=== PATIENT | female | born 1995 | race Caucasian/White ===

== ENCOUNTER 2020-02-14 19:47 | Emergency (ER) | payer OTHER ==
[2020-02-14 20:49] LABS: MONOSPOT (MONONUCLEOSIS) NEGATIVE (NEGATIVE)
[2020-02-14] MEDS ORDERED: DEXAMETHASONE 2M2 MG PO (22:13)
== END 2020-02-14 22:33 | disposition home or self-care (01) ==
LOC: FER 19:47
PROVIDERS: Emergency Medicine
DX: J03.90 Acute tonsillitis, unspecified (principal)
CPT/HCPCS: 86308; 87880; J1100

== ENCOUNTER 2021-05-31 10:23 | Emergency (ER) | payer OTHER ==
[~2021-05-31 10:23] MED LIST: DEXAMETHASONE 2M2 MG PO
[2021-05-31] MEDS ORDERED: MEDROL 4MG DOSEP4 MG PO (12:50)
[2021-05-31] MEDS ORDERED: CYCLOBENZAPRINE10 MG PO (12:50)
== END 2021-05-31 13:42 | disposition home or self-care (01) ==
LOC: FER 10:23
DX: S39.012A Strain of muscle, fascia and tendon of lower back, initial encounter (principal); Z88.0 Allergy status to penicillin; W07.XXXA Fall from chair, initial encounter; Z28.310 Unvaccinated for COVID-19
CPT/HCPCS: 72110; J1100